=== PATIENT | male | born 1965 | race American Indian/Alaskan Native ===

== ENCOUNTER 2018-05-18 09:50 | Emergency (ER) | payer BC ==
[2018-05-18 09:56] VITALS: BMI 24.7
[2018-05-18 10:02] VITALS: BP 122/83; PULSE 100; RESP 18; TEMP 98.3; O2SAT 99
--- NOTE | 2018-05-18 10:09 | C.PDOC ---
History Of Present Illness 52 year old male presents to the ED for evaluation of cough, subjective fever and chills for 4 days. Patient reports positive sinus and chest congestion, and dry cough. Patient reports positive smoking. Patient did not take any medication prior to arrival. Patient has history of hypertension, on unknown hypertension medication. COUGH, SUBJ FEVER, CHILLS X 4 DAYS. +SINUS, CHEST VLAD, DRY COUGH. +SMOKING. 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 HO HTN ON UNK HTN RX EXAM NARD HEENT +RHINORRHEA LUNGS +DRY COUGH NO RETRACTION CTA B/L OCC RHONCHI NO WHEEZE REMAINDER NEG MDM ADVISED STOP SMOKING. OUTSIDE OF TREATMENT WINDOW FOR TAMIFLU. ADVISED TRY CORICIDIN FIRST TO HELP W SINUS CONGESTION, NOT TO TAKE TESSALON SIMULTANEOUSLY. TAKE TESSALON IF NO IMPROVE W CORICIDIN Time Seen by Provider: 05/18/18 10:02 Chief Complaint (Nursing): Flu-like Symptoms History Per: Patient History/Exam Limitations: no limitations Onset/Duration Of Symptoms: Days (4) Current Symptoms Are (Timing): Still Present Associated Symptoms: Fever, Chills, Cough. denies: Sputum Additional History Per: Patient Past Medical History Reviewed: Historical Data, Nursing Documentation, Vital Signs Vital Signs: Last Vital Signs Temp 98.3 F 05/18/18 09:57 Pulse 100 H 05/18/18 09:57 Resp 18 05/18/18 09:57 BP 122/83 05/18/18 09:57 Pulse Ox 99 05/18/18 09:57 - Medical History PMH: HTN Surgical History: No Surg Hx Family History: States: Unknown Family Hx - Social History Hx Tobacco Use: Yes Hx Alcohol Use: No Hx Substance Use: No - Immunization History Hx Tetanus Toxoid Vaccination: No Hx Influenza Vaccination: No Hx Pneumococcal Vaccination: No Review Of Systems Constitutional: Positive for: Fever, Chills Respiratory: Positive for: Cough. Negative for: Sputum Physical Exam - Physical Exam Appears: Non-toxic, Other (no acute respiratory distress) Skin: Normal Color, Warm, Dry Head: Atraumatic, Normacephalic Eye(s): bilateral: Normal Inspection Ear(s): Bilateral: Normal Nose: Other (rhinorrhea ) Oral Mucosa: Moist Throat: Normal, No Erythema, No Exudate Neck: Supple Chest: Symmetrical, No Deformity, No Tenderness Cardiovascular: Rhythm Regular, No Murmur Respiratory: Rhonchi (occasional), No Wheezing, Other (dry cough noted, no retractions, clear to ausculatation bilaterally) Extremity: Normal ROM, Capillary Refill (less than 2 seconds ) Neurological/Psych: Oriented x3, Normal Speech, Normal Cognition ED Course And Treatment O2 Sat by Pulse Oximetry: 99 (on RA) Pulse Ox Interpretation: Normal Medical Decision Making Medical Decision Making: ADVISED STOP SMOKING. OUTSIDE OF TREATMENT WINDOW FOR TAMIFLU. ADVISED TRY CORICIDIN FIRST TO HELP W SINUS CONGESTION, NOT TO TAKE TESSALON SIMULTANEOUSLY. TAKE TESSALON IF NO IMPROVE W CORICIDIN Disposition Counseled Patient/Family Regarding: Diagnosis, Need For Followup, Rx Given - Disposition Referrals: YOUR,PMD [Other] Disposition: HOME/ ROUTINE Disposition Time: 10:05 Condition: GOOD Prescriptions: Benzonatate [Tessalon Perles] 200 mg PO TID PRN #15 sgl PRN Reason: Cough Chlorpheniramine/Dextromethorp [Coricidin Hbp Cough & Cold Tab] 1 each PO Q6 #16 tablet Ibuprofen [Motrin] 600 mg PO Q6 #30 tab Instructions: Viral Upper Respiratory Infection, Adult (DC) Forms: [employer] (Bel[place]ian), Work Excuse - Clinical Impression Clinical Impression: Upper respiratory infection with cough and congestion - Scribe Statement The provider has reviewed the documentation as recorded by the Scribe (Mary Ann Arias) Provider Attestation: All medical record entries made by the Scribe were at my direction and personally dictated by me. I have reviewed the chart and agree that the record accurately reflects my personal performance of the history, physical exam, medical decision making, and the department course for this patient. I have also personally directed, reviewed, and agree with the discharge instructions and disposition.
== END 2018-05-18 10:13 | disposition home or self-care (01) ==
LOC: C.ER 09:50
DX: J06.9 Acute upper respiratory infection, unspecified (principal); R05 Cough; R09.89 Other specified symptoms and signs involving the circulatory and respiratory systems; Z87.891 Personal history of nicotine dependence